=== PATIENT | female | born 1985 ===

== ENCOUNTER 2018-02-16 09:06 | Inpatient (IN) | payer OTHER ==
[~2018-02-16] VITALS: Ht 160 cm; Wt 3.2 kg
[~2018-02-16 09:06] MED LIST: SINGULAIR10 MG
[2018-02-16] MEDS ORDERED: OBSTETRIX EC C1 EACH PO (10:23)
[2018-02-19] MEDS ORDERED: SURFAK240 M1 PO (08:53)
[2018-02-19] MEDS ORDERED: PERCOCET 5-3251 EACH PO (08:53)
[2018-02-19] MEDS ORDERED: FERROUS SULFAT325 MG PO (08:53)
== END 2018-02-19 14:04 | disposition home or self-care (01) | DRG 766 ==
LOC: LDR 09:06 → OB/GYN 13:50
PROVIDERS: Obstetrics & Gynecology
PROC: 4A1HXCZ Monitoring of Products of Conception, Cardiac Rate, External Approach (ICD-10-PCS; 2018-02-16)
PROC: 10D00Z1 Extraction of Products of Conception, Low, Open Approach (ICD-10-PCS; principal; 2018-02-16 10:00)
DX: O98.32 Other infections with a predominantly sexual mode of transmission complicating childbirth (principal); A63.0 Anogenital (venereal) warts; Z3A.38 38 weeks gestation of pregnancy; Z37.0 Single live birth; O09.523 Supervision of elderly multigravida, third trimester

== ENCOUNTER 2020-08-23 13:53 | Outpatient (CLI) | payer OTHER ==
[~2020-08-23 13:53] MED LIST changes: +FERROUS SULFAT325 MG PO; +OBSTETRIX EC C1 EACH PO; +PERCOCET 5-3251 EACH PO; +SURFAK240 M1 PO
== END 2020-08-23 14:12 | disposition home or self-care (01) ==
LOC: RAD 13:53
PROVIDERS: ATTEND Orthopaedic Surgery
DX: M25.571 Pain in right ankle and joints of right foot (principal)

== ENCOUNTER 2022-06-04 11:47 | Outpatient (CLI) | payer OTHER | END 2022-06-04 11:54 | disposition home or self-care (01) | LOC: RAD 11:47 | PROVIDERS: ATTEND Orthopaedic Surgery | DX: M25.571 Pain in right ankle and joints of right foot (principal) ==